=== PATIENT | female | born 1965 | race Caucasian/White ===

== ENCOUNTER 2023-03-17 13:55 | Emergency (ER) | payer BC, MEDICAID, SELFPAY ==
--- NOTE | 2023-03-17 13:56 | XRR_ITS ---
PROCEDURE INFORMATION: Exam: XR Chest Exam date and time: 03/17/2023 2:16 PM Age: 57 years old Clinical indication: Pain; Angina pectoris; Additional info: Cp TECHNIQUE: Imaging protocol: Radiologic exam of the chest. Views: 1 view. COMPARISON: No relevant prior studies available. FINDINGS: Lungs: Unremarkable. No consolidation. Pleural spaces: Unremarkable. No pleural effusion. No pneumothorax. Heart/Mediastinum: Unremarkable. No cardiomegaly. Bones/joints: Unremarkable. XR/XR chest 1V portable [id number] IMPRESSION: No acute findings.
[2023-03-17 14:00] VITALS: BP 176/120; PULSE 95; RESP 18; TEMP 36.6; O2SAT 96; BMI 56.6
--- NOTE | 2023-03-17 14:09 | ECG_ITS ---
[facility] Test Date: 2023-03-17 Pat Name: Hoda Christy Department: Room: Gender: Female Welfare Supervisor: : 1965 Requested By: Pat Canada Order Number: [id number] Ashish MD: Gabriele Hopkins M.D. Measurements Intervals [place] Rate: 98 P: 55 WI: 151 QRS: 4 QRSD: 98 T: 52 QT: 337 QTc: 431 Interpretive Statements SINUS RHYTHM LOW QRS VOLTAGE IN PRECORDIAL LEADS [QRS DEFLECTION < 1.0 mV IN CHEST LEADS] No previous ECG available for comparison Electronically Signed On 03-17-2023 15:20:02 CDT by Gabriele Hopkins M.D. [id number]
[2023-03-17 14:28] LABS: Basophils % 0.5 %; Eosinophils # 0.4 10^3/uL (0.0-0.8); Eosinophils % 5.2 %; Hematocrit 40.8 % (36-47); Lymphocytes # 1.5 10^3/uL (0.8-4.8); Lymphocytes % 17.6 %; Mean Corpuscular HGB Conc 31.9 g/dL (30-55); Mean Corpuscular Hemoglobin 29.9 pg (27-33); Mean Corpuscular Volume 93.8 fl (85-98); Mean Platelet Volume 9.5 fL (7.4-10.4); Monocytes # 0.5 10^3/uL (0.2-0.9); Monocytes % 5.6 %; Neutrophils # 5.95 10^3/uL (1.8-7.7); Neutrophils % 70.7 %; Nucleated Red Blood Cells % 0 %; Platelet Count 293 10^3/cmm (157-399); Red Blood Count 4.35 10^6/uL (3.85-5.65); Red Cell Distribution Width 13.3 % (12.1-15.1); White Blood Count 8.41 10^3/uL (3.29-11.43)
[2023-03-17 14:51] LABS: Troponin(5th) Baseline < 6 ng/L (0-10)
[2023-03-17 15:01] LABS: Alanine Aminotransferase 15 U/L (0-33); Albumin Level 4.4 g/dL (3.5-5.2); Alkaline Phosphatase 81 U/L (35-105); Anion Gap 12.6 (5-19); Aspartate Amino Transferase 17 U/L (0-32); Blood Urea Nitrogen 14 mg/dL (6-20); Calcium 9.2 mg/dL (8.5-10.5); Carbon Dioxide 27 mmol/L (22-29); Chloride 103 mmol/L (98-107); Globulin 3.1 g/dL (1.3-4.6); Glomerular Filtration Rate 73.4 mL/min (90-130); Glucose 114 mg/dL (65-115); NT Pro B Type Natriuretic Pept 138 pg/mL (0-125); Osmolality Calculated 289 mOsm/kg (285-295); Potassium 3.6 mmol/L (3.5-5.1); Sodium 139 mmol/L (136-145); Total Bilirubin 0.3 mg/dL (0.15-1.2); Total Protein 7.5 g/dL (6.6-8.7)
--- NOTE | 2023-03-17 15:01 | W.ED.URI ---
HPI - URI/Sore Throat General: Chief Complaint: Upper Respiratory Infection Stated Complaint: SOB/chest pain/facial numbness Time Seen by Provider: 03/17/23 14:34 Source: patient Mode of arrival: ambulatory History of Present Illness: 57-year-old female presents emergency room with complaint of shortness of breath and moderately productive cough. She had about 6 weeks ago seem to be resolving and then worsened again. She has some chest discomfort but only associated with cough she had some numbness bilaterally on the face starting about 4 days ago with its mostly resolved. She has no other neurologic deficits. Denies hemoptysis. MD elicited complaint: fever and cough Onset (ago): minute(s) Consistency: constant Severity: mild Able to tolerate fluids by mouth: Yes Exacerbating factors: nothing Relieving factors: nothing Associated symptoms: Reports congestion, cough, nasal congestion, rhinorrhea and short of breath; Deny abdominal pain, change in voice, chills, chest pain, diarrhea, epistaxis, ear or mastoid pain, fever(s), headache(s), myalgias, nausea, rash, sinus pain, stiffness, sore throat or vomiting Review of Systems Const: Denies: fever(s) or chills ENMT: Reports: nasal discharge and nasal congestion; Denies: ear or mastoid pain, epistaxis or sinus pain Card: Denies: chest pain Resp: Reports: dyspnea, productive cough and wheezing GI: Denies: abdominal pain, nausea, vomiting or diarrhea : Denies: dysuria, urinary frequency or urinary urgency Musc: Denies: neck pain or back pain Skin/Breast: Denies: rash Neuro: Denies: headache(s) Physical Exam Const: GENERAL APPEARANCE: cooperative and comfortable ORIENTATION/CONSCIOUSNESS: Yes awake, Yes oriented to person, Yes oriented to place and Yes oriented to time HENMT: COMMON NORMALS: normocephalic, atraumatic and hearing grossly normal bilaterally HEAD & SCALP: normocephalic and atraumatic Resp: COMMON NORMALS: normal respiratory effort, No retractions and No use of accessory muscles AUSCULTATION: rhonchi and wheezes Cardio: COMMON NORMALS: regular rate, regular rhythm and No murmurs present (Cardio) RATE: regular rate RHYTHM: regular rhythm GI: COMMON NORMALS: Soft to palpation and No hepatosplenomegaly present AUSCULTATION: Yes normoactive bowel sounds PALPATION: Yes Soft to palpation, No Tenderness to palpation present (GI), No Guarding due to palpation present (GI) and Yes No hepatosplenomegaly present Extremity: COMMON NORMALS: normal to inspection, capillary refill normal, no clubbing, cyanosis or edema, no calf tenderness and no pedal edema Neuro: SENSORIUM/ORIENTATION: Yes oriented to person, Yes oriented to place and Yes oriented to time Skin: COMMON NORMALS: no rashes or lesions noted GENERAL SKIN EXAM: no rashes or lesions noted Course Vital Signs: Vital signs: Vital Signs Temperature 97.9 F 03/17/23 14:00 Pulse Rate 95 03/17/23 14:00 Respiratory Rate 18 03/17/23 14:00 Blood Pressure 176/120 03/17/23 14:00 Pulse Oximetry 96 03/17/23 14:00 Oxygen Delivery Me thod Room Air 03/17/23 14:00 MDM - URI/Sore Throat Medical Decision Making Chest x-ray unremarkable EKG normal initial troponin negative. EKG shows no acute ST changes chest x-ray shows no infiltrates. She still has some wheezing and rhonchi her oxygen sats are good on room air will discharge home on prednisone taper albuterol to use as needed 10-day course of doxycycline if not improving follow-up with primary care. Medical Records I reviewed the patient's medical records. Lab Data I reviewed the patient's lab results. 03/17/23 14:22 03/17/23 14:22 Radiology Impressions Chest X-Ray 03/17/23 13:56 IMPRESSION: No acute findings. Laboratory Results WBC 8.41 10^3/uL (3.29-11.43) 03/17/23 14: RBC 4.35 10^6/uL (3.85-5.65) 03/17/23 14:22 Hgb 13.00 g/dL (11.27-16.99) 03/17/23 14: Hct 40.8 % (36-47) 03/17/23 14:22 MCV 93.8 fl (85-98) 03/17/23 14:22 MCH 29.9 pg (27-33) 03/17/23 14: MCHC 31.9 g/dL (30-55) 03/17/23 14:22 RDW 13.3 % (12.1-15.1) 03/17/23 14:22 Plt Count 293 10^3/cmm (157-399) 03/17/23 14:22 MPV 9.5 fL (7.4-10.4) 03/17/23 14:22 Neut % (Auto) 70.7 % 03/17/23 14:22 Lymph % (Auto) 17.6 % 03/17/23 14:22 Garden % (Auto) 5.6 % 03/17/23 14:22 Eos % (Auto) 5.2 % 03/17/23 14:22 Baso % (Auto) 0.5 % 03/17/23 14: Neut # (Auto) 5.95 10^3/uL (1.8-7.7) 03/17/23 14:22 Lymph # (Auto) 1.5 10^3/uL (0.8-4.8) 03/17/23 14:22 Garden # (Auto) 0.5 10^3/uL (0.2-0.9) 03/17/23 14:22 Eos # (Auto) 0.4 10^3/uL (0.0-0.8) 03/17/23 14:22 Baso # (Auto) 0.0 10^3/uL (0.0-0.1) 03/17/23 14:22 Nucleated RBC % (auto) 0 % 03/17/23 14: Nucleated RBCs # 0.0 /100WBC 03/17/23 14:22 Sodium 139 mmol/L (136-145) 03/17/23 14:22 Potassium 3.6 mmol/L (3.5-5.1) 03/17/23 14:22 Chloride 103 mmol/L (98-107) 03/17/23 14:22 Carbon Dioxide 27 mmol/L (22-29) 03/17/23 14:22 Anion Gap 12.6 (5-19) 03/17/23 14:22 BUN 14 mg/dL (6-20) 03/17/23 14:22 Creatinine 0.8 mg/dL (0.5-0.9) 03/17/23 14:22 GFR Calculation 73.4 mL/min (90-130) L 03/17/23 14:22 Glucose 114 mg/dL (65-115) 03/17/23 14:22 Calculated Osmolality 289 mOsm/kg (285-295) 03/17/23 14:22 Calcium 9.2 mg/dL (8.5-10.5) 03/17/23 14:22 Total Bilirubin 0.3 mg/dL (0.15-1.2) 03/17/23 14:22 AST 17 U/L (0-32) 03/17/23 14:22 ALT 15 U/L (0-33) 03/17/23 14:22 Alkaline Phosphatase 81 U/L (35-105) 03/17/23 14:22 Troponin T Baseline < 6 ng/L (0-10) 03/17/23 14:22 NT-Pro-B Natriuret Pep 138 pg/mL (0-125) H 03/17/23 14:22 Total Protein 7.5 g/dL (6.6-8.7) 03/17/23 14:22 Albumin 4.4 g/dL (3.5-5.2) 03/17/23 14:22 Globulin 3.1 g/dL (1.3-4.6) 03/17/23 14:22 All radiology interpretation(s) finalized by discharge Discharge Plan Discharge Patient Disposition: Home Clinical Impression: Bronchitis Condition: Stable Prescriptions: New doxycycline hyclate 100 mg capsule 100 mg PO BID 10 Days Qty: 20 0RF prednisone 20 mg tablet 20 mg PO TID Qty: 15 0RF Rx Instructions: 1 p.o. 3 times daily x3 days, 1 p.o. twice daily x2 days, 1 p.o. daily x2 days albuterol sulfate 90 mcg/actuation HFA aerosol inhaler 2 inh INHALATION Q4H PRN (Reason: shortness of breath or wheezing) Qty: 18 0RF No Action ibuprofen 200 mg Tablet 400 - 600 mg PO Q6H PRN (Reason: Pain) Discharge Orders: Discharge ED (Routine); Ordered 03/17/23 Ordered By: Flavio Braden Discharge Diet: Usual diet Discharge Activity: Increase activity as tolerated Patient Instructions: Opioid Safety, Pain Management Coding Level of Care Code ED [employer] Operator for Lashell Roy
== END 2023-03-17 16:10 | disposition home or self-care (01) ==
PROVIDERS: Emergency Medicine; Emergency Provider Family Medicine
DX: J40 Bronchitis, not specified as acute or chronic (principal)
CPT/HCPCS: 36415; 71045; 80053; 83880; 84484; 85025; 93005; 99285

== ENCOUNTER → 2023-06-24 12:15 | Outpatient (BNVA) | payer BC, MEDICAID, SELFPAY | PROVIDERS: PCP Nurse Practitioner Family; Referring Provider Nurse Practitioner Family; Visit Provider Specialist | DX: R20.0 Anesthesia of skin (principal); H53.9 Unspecified visual disturbance; R29.90 Unspecified symptoms and signs involving the nervous system | CPT/HCPCS: 36415; 82607; 85651; 86140 ==

== ENCOUNTER 2023-07-20 10:44 | Outpatient (CLI) | payer BC, MEDICAID, SELFPAY ==
--- NOTE | 2023-07-20 11:00 | MR_ITS ---
WS: [id number] MRI HEAD WITH CONTRAST TECHNIQUE: Sagittal T1, T2 axial, T2 axial FLAIR, axial susceptibility weighted imaging, axial diffus ion weighted images, and coronal T2 images were obtained. Pre and post-T1 axial and post T1 coronal i mages. ADC and FSPGR images. CLINICAL INFORMATION: R20.0 - Anesthesia of skin COMPARISON: None. FINDINGS: No evidence of restricted diffusion to suggest acute ischemia. Ventricular system and basal cisterns are patent. Mild small vessel changes. No significant parenchymal volume loss. Normal posterior fossa . Normal vascular flow voids at the skull base. No extra-axial fluid collections. No evidence of mass or mass effect. No hemosiderin on the susceptibly weighted images. Normal optic chiasm and pituitary infundibulum. No abnormal gadolinium enhancement. Normal optic chiasm and pituitary infundibulum. Normal visualized d ural venous sinuses. IMPRESSION: 1. No evidence of restricted diffusion to suggest acute ischemia. 2. Mild small vessel changes. No significant parenchymal volume loss. 3. Temporal lobes and hippocampal formations are normal in appearance. 4. No hemosiderin on the susceptibly weighted images. 5. No abnormal gadolinium enhancement.
[2023-07-20] MEDS: gadobenate dimeglumine 20 mL vial IV (11:46)
== END 2023-07-20 10:45 | disposition home or self-care (01) ==
LOC: RAD 10:44
PROVIDERS: PCP Nurse Practitioner Family; Visit Provider Specialist
DX: R20.0 Anesthesia of skin (principal); H53.9 Unspecified visual disturbance
CPT/HCPCS: 70553; A9577